=== PATIENT | female | born 1975 | race Two or more races ===

== ENCOUNTER → 2019-04-30 | Day surgery (SDC) | payer OTHER | LOC: JASU-SURG 05:22 ==

== ENCOUNTER 2024-05-05 07:15 | Emergency (ER) | payer OTHER ==
[2024-05-05] MEDS ORDERED: IBUPROFEN 400 MG TABLET (FP) PO ONE (07:33)
[2024-05-05] MEDS ORDERED: ACETAMINOPHEN 325 MG TABLET (FP) ONE (07:34)
[2024-05-05] MEDS ORDERED: LIDOCAINE 5% TOPICAL PATCH ONE (07:34)
[2024-05-05] MEDS: ACETAMINOPHEN 325 MG TABLET (FP) PO ONE (07:38)
[2024-05-05] MEDS: LIDOCAINE 5% TOPICAL PATCH TP ONE (07:38)
[2024-05-05] MEDS: IBUPROFEN 400 MG TABLET (FP) PO ONE (07:38)
[2024-05-05 07:43] LABS: HCG,QUALITATIVE URINE Negative
[2024-05-05 07:48] VITALS: BP 137/97; PULSE 80; RESP 16; TEMP 98.8; BMI 35.2
[2024-05-05] MEDS ORDERED: LIDOCAINE PATCH REMOVAL MC ONE (22:00)
== END 2024-05-05 09:10 | disposition home or self-care (01) ==
LOC: FER 07:15
DX: M54.50 Low back pain, unspecified (principal)
CPT/HCPCS: 81003; 84703; 87086; 99283-25